=== PATIENT | male | born 1985 | race African-American/Black ===

== ENCOUNTER 2025-03-03 08:29 | Emergency (ER) | payer OTHER, SELFPAY ==
[2025-03-03 08:37] VITALS: BP 108/74; PULSE 116; RESP 18; TEMP 36.6; O2SAT 98; BMI 27.4
--- NOTE | 2025-03-03 08:59 | CRLHL7_ITS ---
For Patients: As a result of the Century Cures Act, medical imaging exams and procedure reports are released immediately into your electronic medical record. You may view this report before your referring provider. If you have questions, please contact your health care provider. Indication: Fall. Technique: CT brain: Noncontrast CT images of the brain. CT facial bones: Noncontrast CT images of the facial bones. Comparison: None. Findings: CT Brain: The ventricles and sulci are within normal limits for patient age. No mass effect or midline shift. Gomez-white differentiation is maintained. No acute intracranial hemorrhage or pathologic extra-axial fluid collection. Calvarium is intact. CT facial bones: The facial bones are intact. No acute fracture or dislocation. Minimal paranasal sinus mucosal thickening. Small osteoma right frontal sinus. The patient is edentulous. Mastoid air cells are clear. Globes are symmetric. No retrobulbar hemorrhage. Impression: 1. No acute intracranial hemorrhage or mass effect. 2. No acute fracture or dislocation of the facial bones. Please note that all CT scans at this facility use dose modulation, iterative reconstruction, and/or weight-based dosing when appropriate to reduce radiation dose to as low as reasonably achievable. Dictated by Dayron Barker MD @ 03/03/2025 9:39:47 AM (Electronically Signed)
--- NOTE | 2025-03-03 08:59 | CRLHL7_ITS ---
For Patients: As a result of the Cures Act, medical imaging exams and procedure reports are released immediately into your electronic medical record. You may view this report before your referring provider. If you have questions, please contact your health care provider. Indication: Fall with foot pain. Technique: Right foot 3 views. Comparison: None. Findings/Impression: Bones: Severe osteolysis of the right 2nd toe middle phalanx suspicious for osteomyelitis. No sign of acute fracture or dislocation. Joint spaces: Unremarkable. Soft tissues: Generalized swelling in the 2nd toe which correlates with the suspected osteomyelitis. Dictated by Olivier Velasquez MD @ 03/03/2025 9:40:57 AM (Electronically Signed)
--- NOTE | 2025-03-03 09:01 | ED_ITS ---
HPI - General Adult General Chief complaint: Jaw Injury/Pain Stated complaint: jaw injury/pain Time Seen by Provider: 03/03/25 08:57 History of Present Illness HPI narrative: Patient is a 39-year-old gentleman who yesterday was at work and was climbing a ladder putting entire way when he slipped and fell down several rungs of the ladder striking his mandible on a ladder step. His jaws been pulled forward ever since and he has significant discomfort. He also twisted his right foot a nd has some minor toe pain. Patient states he is otherwise healthy. The injury occurred at work. He did not fall to the ground and did not lose consciousness. No other head injuries noted. GCS 15. No other complaints. The pain is severe and located on both angles of the jaw. Patient is having very difficult time eating and drinking. Related Data Home Medications ?Medication ?Instructions ?Recorded ?Confirmed No Known Home Medications 03/03/2502/04 Allergies Allergy/AdvReac Type Severity Reaction Status Date / Time ketorolac (From Toradol) Allergy Severe Verified 03/03/25 08:43 metoclopramide (From Reglan) AdvReac Intermediate Verified 03/03/25 08:43 Review of Systems Status of ROS: Reports: 10 or more systems reviewed and unremarkable except as noted in History and below Exam Narrative: Exam Narrative: EXAM GENERAL: Patient appears comfortable and well. Jaws obviously pulled anteriorly. EYES: No scleral icterus. LYMPH: No supraclavicular or cervical lymphadenopathy. SKIN: Visible skin seen during exam normal or with benign process only. EXT: Minor swelling and abrasion of the 2nd digit right foot. HEART: Regular rate and rhythm with no murmurs, rubs, or gallops. LUNGS: Clear to auscultation bilaterally with no crackles or wheezes. ABD: Soft, non tender, non distended. PSYCH: Good eye contact, speech is not pressured. Const: Vital Signs, click to edit/add: Vital Signs - 24 hr 03/03/25 08:37 Temperature 98 F Pulse Rate [Right Pulse Oximeter] 116 H Respiratory Rate 18 Blood Pressure [Ri ght Upper Arm] 108/74 Pulse Oximetry 98 Oxygen Delivery Me thod Room Air Course Course ED Course: I am concerned that he has a mandible fracture versus complex dislocation. CT of the head and facial bones as well as x-ray of the right foot pending. Vital Signs Vital signs: Initial Vital Signs Temperature 98 F 03/03/25 08:37 Temperature Source Temporal Artery Scan 03/03/25 08:37 Pulse Rate 116 H 03/03/25 08:37 Pulse Rhythm Regular 03/03/25 08:37 Pulse Strength 3+ Normal 03/03/25 08:37 Respiratory Rate 18 03/03/25 08:37 Blood Pressure 108/74 03/03/25 08:37 Blood Pressure Mean 85 03/03/25 08:37 Blood Pressure Position Sitting 03/03/25 08:37 Pulse Oximetry 98 03/03/25 08:37 Oxygen Delivery Method Room Air 03/03/25 08:37 Vital Signs Temperature 98 F 03/03/25 08:37 Pulse Rate 116 H 03/03/25 08:37 Respiratory Rate 18 03/03/25 08:37 Blood Pressure 108/74 03/03/25 08:37 Pulse Oximetry 98 03/03/25 08:37 Oxygen Delivery Method Room Air 03/03/25 08:37 Temperature 98 F 03/03/25 08:37 Pulse Rate 116 H 03/03/25 08:37 Respiratory Rate 18 03/03/25 08:37 Blood Pressure 108/74 03/03/25 08:37 Pulse Oximetry 98 03/03/25 08:37 Oxygen Delivery Method Room Air 03/03/25 08:37 Medical Decision Making MDM Narrative Medical decision making narrative: Patient is a 39-year-old gentleman who fell down a ladder injuring his jaw. I did do a CT of his jaw which showed no acute fractures or dislocations. I found this to be very surprising. I actually spoke to the radiologist and he does not believe that the patient's jaws dislocated. The CT shows no fractures. I did do CT of his head as well. In addition he has what appears to be significantly inflamed. Patient states he had no ulceration recently and the wound is due to an abrasion which will be treated symptomatically. Patient is a very upset that the CT scan does not show dislocation. I am still suspecting that there is some malalignment of the jaw and I did give him my card and asked him to call tomorrow and I would set him up with Ear Nose and Throat. Flaxton given through in see meds no driving or using machinery. Discharge Plan Discharge Clinical Impression: Injury of jaw Patient Disposition: Home, Self-Care Condition: Stable Additional Instructions: Ice Tylenol Motrin Flaxton via in see meds for severe pain Call Dr. Davis his office tomorrow morning and we can set up Ear Nose and Throat to re-evaluate your jaw. Activity Level: No Restrictions Discharge Diet: Regular Prescriptions: No Action No Known Home Medications Follow Up/Referrals: Provider,Not a Local [Primary Care Provider, Family Practice] Stand Alone Forms: [employer] Info Instructions
== END 2025-03-03 10:10 | disposition home or self-care (01) ==
PROVIDERS: Emergency Provider Internal Medicine
DX: R68.84 Jaw pain (principal); W11.XXXA Fall on and from ladder, initial encounter
CPT/HCPCS: 70450; 70486; 73630; 99283; 99284